=== PATIENT | female | born 1955 | race Caucasian/White ===

== ENCOUNTER 2017-03-23 09:07 | Day surgery (SDC) | payer BC ==
[~2017-03-23 09:07] MED LIST: Buffered Lidocaine 0.9% SYRIN* 5 ML/SYR SYRINGE INTRADERM ONE; Dexamethasone IV* 4 MG/ML 1 ML (4 MG) IV SLOW PU ONE; Famotidine IV* 10 MG/ML 2 ML (20 mg) IV ONE
[2017-03-23] MEDS ORDERED: Famotidine IV* 10 MG/ML 2 ML (20 mg) ONE (09:16)
[2017-03-23] MEDS ORDERED: Buffered Lidocaine 0.9% SYRIN* 5 ML/SYR SYRINGE ONE (09:16)
[2017-03-23] MEDS ORDERED: ceFAZolin 2 GM PREMIX (*) 2 GM/50 ML BAG IVPB ONE (09:16)
[2017-03-23] MEDS ORDERED: Dexamethasone IV* 4 MG/ML 1 ML (4 MG) ONE (09:16)
[2017-03-23] MEDS ORDERED: fentaNYL* 50 MCG/ML 2 ML VIAL (100 MCG VIAL) ONE (09:24)
[2017-03-23] MEDS ORDERED: Midazolam* 1 MG/ML 2 ML VIAL (2 MG) ONE (09:24)
[2017-03-23] MEDS ORDERED: Ondansetron INJ* 2 MG/ML VIAL ONE (10:42)
[2017-03-23] MEDS ORDERED: Propofol* 10 MG/ML 20 ML BTL IV PUSH ONE (10:42)
[2017-03-23] MEDS ORDERED: oxyCODONE/Acetamin 5/325 MG* TAB PO PRN (10:52)
[2017-03-23] MEDS ORDERED: Ibuprofen TAB* 600 MG PO PRN (10:52)
[2017-03-23] MEDS ORDERED: DiMENhydriNATE IV* 50 MG/ML VIAL IV PUSH PRN (10:53)
[2017-03-23] MEDS ORDERED: Naloxone* 0.4 MG/ML 1 ML VIAL IV PRN (10:53)
[2017-03-23] MEDS ORDERED: fentaNYL* 50 MCG/ML 2 ML VIAL (100 MCG VIAL) IV PRN (10:53)
[2017-03-23 11:31] VITALS: BP 122/61
--- NOTE | 2017-03-23 21:41 | OP ---
DATE OF OPERATION: 03/23/17 - [facility] DATE OF : 59 SURGEON: Gena Dsouza MD ANESTHESIOLOGIST: Dr. Hurley. ANESTHESIA: General endotracheal. PRE-OP DIAGNOSES: Postmenopausal bleeding, thickened endometrium on ultrasound , weakly proliferative endometrium on office biopsy. POST-OP DIAGNOSES: Postmenopausal bleeding, thickened endometrium on ultrasound , weakly proliferative endometrium on office biopsy. OPERATIVE PROCEDURE: Dilation, hysteroscopy, MyoSure removal of polyp, curettage. ESTIMATED BLOOD LOSS: Minimal, less than 20 cc. FINDINGS: Midline cervix. There was a small endometrial polyp arising next to the left tubal ostia. Otherwise, the endometrium appeared atrophic. There is impingement on the cavity from a posterior fibroid, but no submucosal component to that fibroid that was visualized. No adnexal masses were palpated. Uterus sounds to 8. COMPLICATIONS: None. COUNTS: Sponge count correct x2. The patient tolerated the procedure well and was brought to recovery room awake and in stable condition. DESCRIPTION OF PROCEDURE: The patient was brought to the operating room. When general anesthesia was found to be adequate, the patient was prepped and draped in the usual sterile fashion in the dorsal lithotomy position. Time-out was performed. Exam under anesthesia was performed with the above findings noted. A weighted speculum was placed in the vagina, the anterior lip of the cervix was grasped with a single-tooth tenaculum and the cervix was gently and easily dilated with the graduated Hegar dilators. The MyoSure was advanced with the above findings noted. The polyp was removed with the MyoSure LITE. The MyoSure was removed. Endometrial curettage was performed. Endometrial curettings were sent to pathology. The single-toothed tenaculum was removed from the anterior lip of the cervix. Pressure was held with the polyp forceps. Excellent hemostasis was achieved. All instruments were removed from the vagina. Sponge count was correct x2 and the patient was brought to the recovery room awake and in stable condition. Sequential compression devices were activated throughout the surgery. [id number]/[facility] #: [id number] [facility]
== END 2017-03-23 11:54 | disposition home or self-care (01) ==
LOC: OR 09:07
PROVIDERS: ATTEND Obstetrics & Gynecology
DX: N95.0 Postmenopausal bleeding (principal); N84.0 Polyp of corpus uteri; Z87.891 Personal history of nicotine dependence; I10 Essential (primary) hypertension; Z86.711 Personal history of pulmonary embolism; F41.9 Anxiety disorder, unspecified; M19.90 Unspecified osteoarthritis, unspecified site
CPT/HCPCS: 88305; J0690; J1100; J2250; J2405; J2704; J3010